=== PATIENT | female | born 1970 | race Caucasian/White ===

== ENCOUNTER → 2019-08-22 12:08 | Outpatient (BNVA) | payer MEDICARE, SELFPAY | PROVIDERS: PCP Family Medicine; Visit Provider Internal Medicine | DX: B19.20 Unspecified viral hepatitis C without hepatic coma (principal); R76.8 Other specified abnormal immunological findings in serum; K73.2 Chronic active hepatitis, not elsewhere classified | CPT/HCPCS: 80053; 82105; 85025; 87522 ==

== ENCOUNTER 2019-09-04 10:01 | Outpatient (CLI) | payer MEDICARE, SELFPAY ==
--- NOTE | 2019-09-04 09:30 | US_ITS ---
WS: [id number] Right upper quadrant ultrasound, 09/04/2019 Clinical Data: HEP C ANTIBODY TEST POSITIVE Comparison: None. Findings: The gallbladder is absent The common bile duct is 0.6 mm and there are no intrahepatic ductal abnormalities. Liver shows no cysts, masses or dilated intrahepatic ducts. The pancreas is not obscured by overlying bowel gas and no cyst, pseudocyst, or evidence of pancreati tis is noted. Right kidney measures 4.31 x 4.81 x 10.3 cm and no cyst, masses or hydronephrosis can be seen. The aorta and inferior vena cava show no vascular abnormalities. US/US liver [id number] Impression: 1. Negative right upper quadrant ultrasound. 2. Absent gallbladder.
== END 2019-09-04 10:02 | disposition home or self-care (01) ==
LOC: US 10:07
PROVIDERS: PCP Family Medicine; Visit Provider Internal Medicine
DX: R76.8 Other specified abnormal immunological findings in serum (principal)
CPT/HCPCS: 76705

== ENCOUNTER 2020-03-11 14:53 | Emergency (ER) | payer MEDICARE, SELFPAY ==
[2020-03-11 15:08] VITALS: BP 188/114; PULSE 91; RESP 18; TEMP 36.3; O2SAT 95; BMI 45.7
--- NOTE | 2020-03-11 15:14 | XR_ITS ---
WS: [id number] EXAM: RIGHT KNEE: 3 VIEWS DATE OF EXAMINATION: 03/11/2020, 1624 hours COMPARISON: None. HISTORY: Patient is 49 years old with knee pain. FINDINGS: There are changes consistent with advanced tricompartmental osteoarthritis within the right knee with out fracture, lytic or blastic process. No appreciable joint effusion. Extra articular soft tissues a re unremarkable. XR/XR knee RT 3V* [id number] IMPRESSION: Advanced arthritis right knee. No acute abnormality.
[2020-03-11 17:38] VITALS: PULSE 82
[2020-03-11 17:45] VITALS: BP 180/80; PULSE 85; RESP 16; O2SAT 95
--- NOTE | 2020-03-11 18:01 | W.ED.EXTPRO ---
HPI - Extremity Problem General: Chief complaint: Extremity Injury, Lower Stated complaint: RIGHT KNEE PAIN Time Seen by Provider: 03/11/20 17:55 Source: patient Mode of arrival: ambulatory Limitations: no limitations History of Present Illness: HPI Narrative: 49-year-old female states she is stepping over her dog yesterday and twisted her right leg. Patient states she felt a pop in her right knee and has had right knee pain since then. States pain is sharp in nature and rates it a 8 out of 10. She is able to walk on it but states that is quite painful. She denies any other injuries. Denies any history of issues with that knee. Associated symptoms: Deny chest pain, fever(s) or rash Review of Systems Const: Denies: fever(s), chills, body aches or change in appetite Eyes: Denies: blurry vision or eye discomfort ENMT: Denies: throat pain or dental pain Card: Denies: chest pain Resp: Denies: dyspnea GI: Denies: abdominal pain, nausea, vomiting or diarrhea : Denies: dysuria Musc: Reports: joint pain Skin/Breast: Denies: rash Neuro: Denies: headache(s) Psych: Denies: depression [place]/Lymph: Denies: easy bruising All/Imm: Denies: urticaria PFSH ED PFSH: Medical History Benign essential HTN Bilateral carpal tunnel syndrome History of gastric ulcer Umbilical hernia Ventral hernia, recurrent Family History Father Diabetes Mother Diabetes Hypertension Social History History of recent travel: No Physical Exam Const: COMMON NORMALS: no acute distress, patient oriented x3 and healthy appearing HENMT: COMMON NORMALS: normocephalic and atraumatic HEAD & SCALP: normocephalic and atraumatic Eye: COMMON NORMALS: Equal, round and reactive pupils present and EOMs intact bilaterally PUPIL: Yes Equal, round and reactive pupils present Neck/C-Spine: COMMON NORMALS: full ROM and supple Chest: COMMONS NORMALS: normal inspection of the chest and normal palpation of entire chest wall Resp: COMMON NORMALS: normal respiratory effort, No retractions, No use of accessory muscles and clear to auscultation bilaterally AUSCULTATION: clear to auscultation bilaterally Cardio: COMMON NORMALS: regular rate, regular rhythm and No murmurs present (Cardio) RATE: regular rate RHYTHM: regular rhythm GI: COMMON NORMALS: Normal to inspection, nondistended, normoactive bowel sounds present, Soft to palpation, non-tender and no masses PALPATION: Yes Soft to palpation Extremity: COMMON NORMALS: full ROM NARRATIVE EXTREMITY EXAM: Tenderness over right knee with slight swelling. No obvious deformity Neuro: COMMON NORMALS: patient oriented x3, moves all extremities and no focal motor deficits Psych: COMMON NORMALS: mental status grossly normal, Normal thought process present and cooperative THOUGHT PROCESS: Normal thought process present Skin: COMMON NORMALS: no rashes or lesions noted and no wounds GENERAL SKIN EXAM: no rashes or lesions noted Course Vital Signs: Vital signs: Vital Signs Temperature 97.3 F L 03/11/20 15:08 Pulse Rate 85 03/11/20 17:45 Respiratory Rate 16 03/11/20 17:45 Blood Pressure 180/80 03/11/20 17:45 Pulse Oximetry 95 03/11/20 17:45 MDM - Extremity (Nontraumatic) MDM Narrative: Medical decision making narrative: Patient presents with a knee sprain from a fall. Patient's x-ray shows no fracture. Will place in a knee immobilizer and have her follow-up orthopedics. She is return if worsening. Imaging Data^: X-ray right knee: Attestation: I personally reviewed and interpreted this imaging study as follows: My impression: No acute abnormality Discharge Plan Discharge Patient Disposition: Home Clinical Impression: Right knee sprain Qualifiers: Encounter type: initial encounter Involved ligament of knee: unspecified ligament Qualified Code(s): S83.91XA - Sprain of unspecified site of right knee, initial encounter Condition: Stable Prescriptions: New Naprosyn 500 mg tablet 500 mg PO BID PRN (Reason: pain) Qty: 20 RF: 0 [place] 5-325 mg tablet 1 tab PO Q6H PRN (Reason: pain) Qty: 10 RF: 0 No Action omeprazole 40 mg capsule,delayed release(DR/EC) 40 mg PO ONCE RF: 0 lisinopril 20 mg tablet 20 mg PO ONCE RF: 0 albuterol sulfate [ProAir HFA] 90 mcg/actuation HFA aerosol inhaler 2 puff INHALATION Q6H PRNRF: 0 Discharge Orders: Discharge Order (Routine); Ordered 03/11/20 Ordered By: Ольга Decker Referrals: Katherine De La Cruz DO [Primary Care Provider] - Filemon Issa MD [Physician] - 1-3 days Discharge Diet: Advance as tolerated Discharge Activity: Resume usual activity Patient Instructions: Knee Sprain (ED), Knee Immobilizer (ED) Coding Level of Care Code ED Parimutuel Cashier for Sis Seo
[2020-03-11] MEDS: HYDROcodone-acetaminophen 5-325 mg Tablet 1 TAB PO (18:37)
[2020-03-11 18:39] VITALS: BP 198/145; PULSE 98; O2SAT 97
--- NOTE | 2020-03-12 10:25 | DCPLANNER ---
sales activity manager had message to schedule a follow up appointment for patient with ortho. sales activity manager called the ortho clinic, spoke with Alyssa, gave clinic patients information. sales activity manager was told that patients information would be printed and reviewed. Clinic will call patient with appointment information.
--- NOTE | 2020-03-13 11:30 | DCPLANNER ---
Patient has a follow up appointment scheduled for Tuesday, March 17, 2020 at 10:[address] Issa. Clinic will call patient with appointment information.
--- NOTE | 2020-04-08 13:38 | DCPLANNER ---
Patient had a follow up appointment scheduled for 03.17.20 with ortho - patient did attend the appointment.
== END 2020-03-11 18:39 | disposition home or self-care (01) ==
PROVIDERS: Emergency Provider Emergency Medicine; PCP Family Medicine
DX: S83.91XA Sprain of unspecified site of right knee, initial encounter (principal); I10 Essential (primary) hypertension; X50.1XXA Overexertion from prolonged static or awkward postures, initial encounter
CPT/HCPCS: 12345; 29530; 73562; 99282; 99283; E0114

== ENCOUNTER 2020-09-24 09:33 | Emergency (ER) | payer MEDICARE, SELFPAY ==
[2020-09-24 09:42] VITALS: BP 174/106; PULSE 90; RESP 20; TEMP 36.7; O2SAT 97; BMI 56.7
--- NOTE | 2020-09-24 10:19 | XR_ITS ---
WS: [id number] Right knee, 3 views, 09/24/2020 Clinical Data: pain Comparison: Right knee, 03/11/2020. Findings: There is osteoarthritic spurring of the medial lateral femoral condyles and of the lateral tibial yuly teau. The patellas intact. There are no fractures or dislocations. The soft tissues are normal. XR/XR knee RT 3V* [id number] Impression: Osteoarthritic change of the medial and lateral joint compartments of the right knee.
[2020-09-24 10:24] LABS: Basophils # 0.1 10^3/uL (0.0-0.1); Eosinophils # 0.2 10^3/uL (0.0-0.8); Eosinophils % 3.4 %; Hematocrit 48.8 % (37.0-47.0); Lymphocytes # 1.9 10^3/uL (0.8-4.8); Lymphocytes % 27.6 %; Mean Corpuscular HGB Conc 32.8 g/dL (30.0-36.0); Mean Corpuscular Hemoglobin 30.7 pg (28.0-34.0); Mean Corpuscular Volume 93.7 fL (81-99); Mean Platelet Volume 12.3 fL (7.4-10.4); Monocytes # 0.4 10^3/uL (0.2-0.9); Monocytes % 6.1 %; Neutrophils # 4.31 10^3/uL (1.8-7.7); Neutrophils % 61.5 %; Nucleated Red Blood Cells % 0 %; Platelet Count 159 10^3/cmm (130-400); Red Blood Count 5.21 10^6/uL (4.1-5.3)
--- NOTE | 2020-09-24 10:25 | ED_ITS ---
HPI - Female Genitourinary General: Chief complaint: Urogenital-Female Stated complaint: rt knee pain/kidney pain Time Seen by Provider: 09/24/20 09:43 History of Present Illness: HPI Narrative: the patient is a obese female with PMH arthritis comes to [facility] complaining of right flank pain for past day and severe low back pain and right knee pain. Denies urinary symptoms or hematuria. Quality of pain: sharp Consistency: constant Exacerbating factors: movement Associated symptoms: Reports no associated symptoms; Deny abdominal pain or headache(s) Review of Systems General: Reports: 10 or more systems reviewed and unremarkable except in HPI and below Const: Denies: fatigue Eyes: Denies: change in vision, blurry vision or eye redness ENMT: Denies: throat pain, swelling of lips/tongue, ear or mastoid pain or nasal congestion Card: Denies: chest pain, palpitations, irregular heart rhythm, edema, dyspnea on exertion or orthopnea Resp: Denies: dyspnea, productive cough or non-productive cough GI: Denies: abdominal pain, diarrhea or GI cramping : Denies: flank pain, difficulty voiding, urinary frequency or urinary urgency Musc: Reports: back pain and joint pain; Denies: neck pain, extremity pain, joint redness, limited range of motion or muscle weakness Skin/Breast: Denies: rash, pruritus, erythema, skin pain or skin tenderness Neuro: Denies: headache(s), numbness in extremities, weakness in extremities, sensory changes, difficulty walking, dizziness, confusion or Slurred speech present Psych: Denies: anxiety or depression Endo: Denies: polyuria All/Imm: Denies: urticaria, throat swelling or tongue swelling PFSH ED PFSH: Medical History (Updated 09/24/20 @ 11:58 by Que Thomas MD) Benign essential HTN Bilateral carpal tunnel syndrome History of gastric ulcer Umbilical hernia Ventral hernia, recurrent Surgical History (Updated 03/26/20 @ 14:52 by Katherine De La Cruz DO) H/O hernia repair H/O neck surgery H/O: hysterectomy History of appendectomy History of back surgery History of cholecystectomy Family History Father Diabetes Mother Diabetes Hypertension Social History Smoking and tobacco status: current every day smoker cigarettes Packs smoked per day: 0.75 Alcohol intake: current Alcohol intake frequency: holidays/special occasions only History of recent travel: No Physical Exam Const: COMMON NORMALS: no acute distress, average body habitus, patient oriented x3, no limitations, healthy appearing, alert and well nourished GENERAL APPEARANCE: cooperative, comfortable, well kempt and well developed ORIENTATION/CONSCIOUSNESS: Yes awake, Yes oriented to person, Yes oriented to place and Yes oriented to time HENMT: COMMON NORMALS: normocephalic, external ears normal and Normal external nose present HEAD & SCALP: normal to inspection and normocephalic NOSE: Normal external nose present EXTERNAL EAR: Yes external ears normal MOUTH: Normal oral and palatal mucosa present THROAT: posterior oropharynx normal Eye: COMMON NORMALS: Equal, round and reactive pupils present and EOMs intact bilaterally GENERAL EYE: appearance normal, both eyes and all related structures PUPIL: Yes Equal, round and reactive pupils present Neck/C-Spine: COMMON NORMALS: full ROM, no lymphadenopathy, no meningeal signs and no JVD GENERAL: Yes normal visual inspection Lymph: LYMPHATIC: no lymphadenopathy noted Chest: COMMONS NORMALS: normal inspection of the chest and normal palpation of entire chest wall Resp: COMMON NORMALS: normal respiratory effort, No retractions, No use of accessory muscles, clear to auscultation bilaterally and percussion normal EFFORT & INSPECTION: Yes able to speak in complete sentences AUSCULTATION: clear to auscultation bilaterally PERCUSSION: percussion normal Cardio: COMMON NORMALS: no JVD, regular rate, regular rhythm, S1 normal heart sound present, S2 normal heart sound present and Peripheral pulses 2+ throughout RATE: regular rate RHYTHM: regular rhythm HEART SOUNDS: S1 normal heart sound present and S2 normal heart sound present PERIPHERAL PULSES: Peripheral pulses 2+ throughout GI: COMMON NORMALS: Normal to inspection, nondistended, normoactive bowel sounds present, Soft to palpation, non-tender and no masses INSPECTION: Yes normal to inspection PALPATION: Yes Soft to palpation Back/Pelvis: COMMON NORMALS: thoracic and lumbar spine normal to inspection, no thoracic nor lumbar tenderness and thoraco-lumbar ROM normal OTHER: Tenderness to right paralumbar musculature vs CVA tenderness. Morbidly obese. Extremity: COMMON NORMALS: normal to inspection, full ROM, capillary refill normal, no joint enlargement and no pedal edema NARRATIVE EXTREMITY EXAM: Right knee tenderness. Ligaments intact. NVI to toes bilaterally. GENERAL: Yes normal exam except as noted Neuro: COMMON NORMALS: patient oriented x3, CN's II-XII intact bilaterally, moves all extremities, no focal motor deficits, no sensory deficits noted and gait normal SENSORIUM/ORIENTATION: Yes alert, Yes oriented to person, Yes oriented to place and Yes oriented to time MENINGEAL SIGNS: Yes no meningeal signs Psych: COMMON NORMALS: mental status grossly normal, Normal thought process present, cooperative, normal affect and speech normal APPEARANCE: Yes well kempt ATTITUDE: Yes calm SPEECH: Yes normal speech THOUGHT PROCESS: Normal thought process present Skin: COMMON NORMALS: no rashes or lesions noted GENERAL SKIN EXAM: no rashes or lesions noted Course Vital Signs: Vital signs: Vital Signs Temperature 98.1 F 09/24/20 09:42 Pulse Rate 90 09/24/20 09:42 Respiratory Rate 20 H 09/24/20 09:42 Blood Pressure 174/106 09/24/20 09:42 Pulse Oximetry 97 09/24/20 09:42 MDM - Female MDM Narrative: Medical decision making narrative: pt has lumbar back pain. labs normal. OK to d/c home with flexeril. ER with worsening symptoms. PCP in a few days. Discussed weight loss with her. Lab Data: Labs: Lab Results 09/24/20 09/24/20 09/24/20 Range/Units 10:15 10:15 10:25 WBC 7.0 (4.0-10.0) 10^3/ uL RBC 5.21 (4.1-5.3) 10^6/u L Hgb 16.0 H (11.5-15.3) g/dL Hct 48.8 H (37.0-47.0) % MCV 93.7 (81-99) fL MCH 30.7 (28.0-34.0) pg MCHC 32.8 (30.0-36.0) g/dL RDW 13.0 (12.1-15.1) % Plt Count 159 (130-400) 10^3/c mm MPV 12.3 H (7.4-10.4) fL Neut % (Auto) 61.5 % Lymph % (Auto) 27.6 % [place] % (Auto) 6.1 % Eos % (Auto) 3.4 % Baso % (Auto) 1.0 % Neut # (Auto) 4.31 (1.8-7.7) 10^3/u L Lymph # (Auto) 1.9 (0.8-4.8) 10^3/u L [place] # (Auto) 0.4 (0.2-0.9) 10^3/u L Eos # (Auto) 0.2 (0.0-0.8) 10^3/u L Baso # (Auto) 0.1 (0.0-0.1) 10^3/u L Nucleated RBC % (a uto) 0 % Nucleated RBCs # 0.0 /100WBC Sodium 136 (136-145) mmol/L Potassium 4.2 (3.5-5.1) mmol/L Chloride 101 (98-107) mmol/L Carbon Dioxide 26 (22-29) mmol/L Anion Gap 13.2 (5-19) BUN 11 (6-20) mg/dL Creatinine 0.7 (0.5-0.9) mg/dL GFR Calculation 88.9 L (90-130) mL/min Glucose 115 (65-115) mg/dL Calculated Osmolal ity 282 L (285-295) mOsm/k g Calcium 9.5 (8.5-10.5) mg/dL Total Bilirubin 0.4 (0.15-1.2) mg/dL AST 52 H (0-32) U/L ALT 56 H (0-33) U/L Alkaline Phosphata se 72 (35-105) IU/L Total Protein 7.7 (6.6-8.7) g/dL Albumin 4.0 (3.5-5.2) g/dL Globulin 3.7 (1.3-4.6) g/dL Lipase 31 (13-60) U/L Urine Color Yellow (Yellow) Urine Appearance Clear (CLEAR) Urine pH 5 (5-7) Ur Specific Gravit y 1.020 (1.005-1.030) Urine Protein Neg (Negative) Urine Glucose (UA) Norm (Normal) Urine Ketones Negative (Negative) Urine Blood Neg (Negative) Urine Nitrate Negative (Negative) Urine Bilirubin Neg (Negative) Urine Urobilinogen Norm (Negative) mg/dL Ur Leukocyte Deb ase Negative (Negative) Discharge Plan Discharge Patient Disposition: Home Clinical Impression: Lumbar strain, Chronic knee pain Condition: Stable Prescriptions: New cyclobenzaprine 5 mg tablet 5 mg PO TID PRN (Reason: muscle spasm) Qty: 12 RF: 0 No Action albuterol sulfate [ProAir HFA] 90 mcg/actuation HFA aerosol inhaler 2 puff INHALATION Q6H PRN (Reason: Shortness Of Breath) RF: 0 Tylenol 325 mg Tablet 325 mg PO PRN RF: 0 Prilosec OTC 20 mg Tablet,Delayed Release (Dr/Ec) 20 mg PO DAILY RF: 0 acetaminophen [Tylenol Extra Strength] 500 mg Tablet 500 mg PO PRN RF: 0 diphenhydramine HCl [Benadryl] 25 mg Capsule 25 mg PO PRN RF: 0 Discharge Orders: Discharge ED (Routine); Ordered 09/24/20 Ordered By: Que Thomas Referrals: Katherine De La Cruz DO [Primary Care Provider] - Discharge Diet: Advance as tolerated Discharge Activity: Resume usual activity Patient Instructions: Low Back Strain (ED), Opioid Safety Activity Restrictions/Additional Instructions: Please take flexeril for your back pain to help. take at night to help you sleep. Do not mix this drug with drugs, alcohol, nor operate machinery while using as it makes you tired. Return to ED with worsening symptoms. Follow up with your primary care physician in a few days to monitor improvement of your symptoms. Coding Level of Care Code ED Acid Crane Operator for Sis Fwd Exam Comprehensive
[2020-09-24] MEDS: sodium chloride 0.9% 1,000 ML 999 ML IV (10:27)
[2020-09-24] MEDS: orphenadrine 30 mg/mL Inj 2 mL 60 MG IM (10:28)
[2020-09-24] MEDS: ketorolac 30 mg/mL INJ IM (10:28)
[2020-09-24 10:35] LABS: Add Urine Microscopic? NO
[2020-09-24 10:43] LABS: Bilirubin Urine Neg (Negative); Blood Urine Neg (Negative); Glucose Urine UA Norm (Normal); Ketones Urine Negative (Negative); Leukocyte Esterase Urine Negative (Negative); Nitrate Urine Negative (Negative); Protein Urine Neg (Negative); Urine Appearance Clear (CLEAR); Urine Color Yellow (Yellow); Urobilinogen Urine Norm (Negative); pH Urine 5 (5-7)
[2020-09-24 10:48] LABS: Alanine Aminotransferase 56 U/L (0-33); Alkaline Phosphatase 72 IU/L (35-105); Anion Gap 13.2 (5-19); Aspartate Amino Transferase 52 U/L (0-32); Blood Urea Nitrogen 11 mg/dL (6-20); Calcium 9.5 mg/dL (8.5-10.5); Carbon Dioxide 26 mmol/L (22-29); Chloride 101 mmol/L (98-107); Creatinine Clr Calc Pharmacy 132.4551; Globulin 3.7 g/dL (1.3-4.6); Glomerular Filtration Rate 88.9 mL/min (90-130); Glucose 115 mg/dL (65-115); Lipase 31 U/L (13-60); Osmolality Calculated 282 mOsm/kg (285-295); Potassium 4.2 mmol/L (3.5-5.1); Sodium 136 mmol/L (136-145); Total Bilirubin 0.4 mg/dL (0.15-1.2); Total Protein 7.7 g/dL (6.6-8.7)
[2020-09-24 12:27] VITALS: PULSE 81; RESP 20; O2SAT 95
[2020-09-24 14:35] LABS: HCG Qualitative Urine. Negative (Negative)
== END 2020-09-24 12:24 | disposition home or self-care (01) ==
PROVIDERS: Emergency Provider Family Medicine; PCP Family Medicine
DX: G89.29 Other chronic pain (principal); M25.561 Pain in right knee; S39.012A Strain of muscle, fascia and tendon of lower back, initial encounter; I10 Essential (primary) hypertension; F17.210 Nicotine dependence, cigarettes, uncomplicated; X58.XXXA Exposure to other specified factors, initial encounter
CPT/HCPCS: 73562; 80053; 81003; 81025; 83690; 85025; 96360; 96372; 99283; J1885; J2360; J7030

== ENCOUNTER 2020-12-13 17:57 | Emergency (ER) | payer MEDICARE, SELFPAY ==
[2020-12-13 18:54] VITALS: BP 190/113; PULSE 92; RESP 19; TEMP 36.6; O2SAT 95; BMI 50.3
--- NOTE | 2020-12-13 20:10 | W.ED.EXTPRO ---
HPI - Extremity Problem General: Chief complaint: Extremity Problem,Nontraumatic Stated complaint: Swelling in right foot Time Seen by Provider: 12/13/20 20:01 History of Present Illness: HPI Narrative: Patient is a 49-year-old female comes to the ED with swelling and pain in left leg. Symptoms started approximately 2 days ago. Patient says 2 days ago she got out of bed and when she started walking her right knee hyperextended. She did not think it was that bad of an injury but started developing pain in the back of her right knee. She describes the pain as a sharp stabbing pain in the back of her knee. She rates the pain a 10 out of 10. She also reports having foot swelling last night. She says the swelling has improved today. She reports that is painful to put any weight on her right knee. Denies any past medical history of blood clots or DVTs. She denies any chest pain, shortness of breath or hemoptysis. Associated symptoms: Deny chest pain, fever(s) or rash Review of Systems Const: Denies: fever(s), chills or fatigue Eyes: Denies: change in vision or eye discomfort ENMT: Denies: throat pain, odynophagia, nasal discharge or nasal congestion Card: Denies: chest pain, palpitations, edema, swelling of feet/ankles, dyspnea on exertion or orthopnea Resp: Denies: dyspnea, productive cough or non-productive cough GI: Denies: abdominal pain, nausea, vomiting, diarrhea, constipation or hematochezia : Denies: flank pain, dysuria or hematuria Musc: Reports: extremity pain (Behind right knee.) and extremity swelling (Right foot); Denies: neck pain or back pain Skin/Breast: Denies: rash or new lesions Neuro: Denies: headache(s), numbness in extremities or weakness in extremities PFSH ED PFSH: Medical History Benign essential HTN Bilateral carpal tunnel syndrome History of gastric ulcer Umbilical hernia Ventral hernia, recurrent Surgical History H/O hernia repair H/O neck surgery H/O: hysterectomy History of appendectomy History of back surgery History of cholecystectomy Family History Father Diabetes Mother Diabetes Hypertension Social History Smoking and tobacco status: current every day smoker cigarettes Packs smoked per day: 0.75 Alcohol intake: current Alcohol intake frequency: holidays/special occasions only History of recent travel: No Physical Exam Const: COMMON NORMALS: patient oriented x3 and alert GENERAL APPEARANCE: cooperative; not comfortable (Uncomfortable due to pain) NUTRITIONAL APPEARANCE: obese HENMT: COMMON NORMALS: normocephalic HEAD & SCALP: normocephalic MOUTH: Normal oral and palatal mucosa present THROAT: posterior oropharynx normal and uvula midline Neck/C-Spine: COMMON NORMALS: supple GENERAL: Yes normal visual inspection Resp: COMMON NORMALS: normal respiratory effort, No retractions, No use of accessory muscles and clear to auscultation bilaterally AUSCULTATION: clear to auscultation bilaterally Cardio: COMMON NORMALS: regular rate, regular rhythm, S1 normal heart sound present, S2 normal heart sound present, No gallops present (Cardio), No clicks present (Cardio), No murmurs present (Cardio) and Peripheral pulses 2+ throughout RATE: regular rate RHYTHM: regular rhythm HEART SOUNDS: S1 normal heart sound present and S2 normal heart sound present PERIPHERAL PULSES: Peripheral pulses 2+ throughout GI: COMMON NORMALS: Normal to inspection, nondistended, normoactive bowel sounds present, Soft to palpation, non-tender and no masses PALPATION: Yes Soft to palpation : COMMON NORMALS: Yes no CVA tenderness BLADDER/KIDNEY EXAM: Yes no CVA tenderness Back/Pelvis: COMMON NORMALS: no CVA tenderness Extremity: GENERAL: Yes normal exam except as noted, Yes calf tenderness (Right calf tenderness) and Yes edema ( trace edema in right foot.) RIGHT LOWER EXTREMITY: Yes knee joint Right knee: Yes inspection (No visible deformity or edema noted. No ecchymosis seen.), Yes palpation (Tenderness in the posterior aspect of knee), Yes ROM (Limited due to pain) and Yes neurovascular exam (Intact) Neuro: COMMON NORMALS: patient oriented x3 and moves all extremities SENSORIUM/ORIENTATION: Yes alert Skin: GENERAL SKIN EXAM: dry skin Course Reevaluation(s): Reevaluation #1: After patient received IM morphine her pain greatly improved and she was resting comfortably. Vital Signs: Vital signs: Vital Signs Temperature 97.8 F 12/13/20 18:54 Pulse Rate 88 12/13/20 22:16 Respiratory Rate 18 12/13/20 22:16 Blood Pressure 156/98 12/13/20 22:16 Pulse Oximetry 95 12/13/20 22:16 MDM - Extremity (Nontraumatic) MDM Narrative: Medical decision making narrative: Patient is a 49-year-old female comes to the ED with right leg pain and swelling. She reports potentially hyperextending her right knee a couple days ago. She was concerned because yesterday she had significant right foot swelling and was concerned of a blood clot. Exam was unremarkable. Right calf tenderness. Neurovascular intact. X-ray of right knee showed no acute fractures but noted some degenerative osteoarthritis. Ultrasound venous duplex of right lower extremity negative for DVT or blood clots. Patient diagnosed with pain of right knee after injury and she was discharged home with some crutches. She was told to follow-up with PCP in 7 to 10 days for reevaluation. Return to ED precautions given. Patient understood and agree with plan. Imaging Data^: Xray Ortho: Attestation: I personally reviewed and interpreted this imaging study as follows: Radiologist's impression: [address] [address] XRay Report Signed Patient: Anna Costello Unit #: [id number] : 1970 Age/Sex: 49 / F ADM Date: 12/13/20 Loc: ER Room/Bed: Attending Dr: Ordering Provider/Ordering MD: Cecil Gardiner Date of Service: 12/13/20 Procedure(s): XR knee RT 3V* [id number] Accession Number(s): [id number] Report Number: [id number] PROCEDURE INFORMATION: Exam: XR Right Knee Exam date and time: 12/13/2020 8:12 PM Age: 49 years old Clinical indication: Pain; Knee; Right; Additional info: Knee pain TECHNIQUE: Imaging protocol: XR Right knee. Views: 3 views. COMPARISON: No relevant prior studies available. FINDINGS: Bones/joints: Severe tricompartmental joint space narrowing and productive degenerative changes consistent with severe tricompartmental osteoarthritis. Soft tissues: Normal. XR/XR knee RT 3V* [id number] IMPRESSION: Severe tricompartmental joint space narrowing and productive degenerative changes consistent with severe tricompartmental osteoarthritis. Dictated By: Aman Mera MD Signed By: Aman Mera MD Signed Date/Time: 12/13/202140 DD/ 37 Vascular: Attestation: I personally reviewed and interpreted this imaging study as follows: Radiologist's impression: Ultrasound venous duplex of right lower extremity?prelim report?no DVTs or blood clots seen. Discharge Plan Discharge Patient Disposition: Home Clinical Impression: Pain of right knee after injury Condition: Stable Prescriptions: No Action albuterol sulfate [ProAir HFA] 90 mcg/actuation HFA aerosol inhaler 2 puff INHALATION Q6H PRN (Reason: Shortness Of Breath) RF: 0 amoxicillin 500 mg capsule 500 mg PO TID 10 Days Qty: 30 RF: 0 triamcinolone acetonide 55 mcg aerosol,spray 2 spray intranasal DAILY 7 Days Qty: 16.9 RF: 0 Tylenol 325 mg Tablet 325 mg PO PRN RF: 0 Prilosec OTC 20 mg Tablet,Delayed Release (Dr/Ec) 20 mg PO DAILY RF: 0 acetaminophen [Tylenol Extra Strength] 500 mg Tablet 500 mg PO PRN RF: 0 diphenhydramine HCl [Benadryl] 25 mg Capsule 25 mg PO PRN RF: 0 Discharge Orders: Discharge ED (Routine); Ordered 12/13/20 Ordered By: Cecil Gardiner Referrals: Katherine De La Cruz DO [Primary Care Provider] - Discharge Diet: Regular Discharge Activity: Use walker/crutches as instructed Patient Instructions: Knee Pain (ED) Activity Restrictions/Additional Instructions: Follow-up with medical provider as directed in 7 to 10 days reevaluation. Use crutches for the next 2 to 3 days to stay off right knee and allow for healing. Rest, ice and elevate right knee and leg. Take [id number] ibuprofen or Tylenol for pain. Return to the ER or your medical provider if condition worsens. Please read and understand discharge instructions. Thank you for choosing [facility] for your healthcare needs today. Please realize this is an emergency room and that we are providing you with a medical screening exam and this may not be complete and all inclusive of all the testing and or work up that you may need to determine your ailment or severity of your illness. It is very important that you follow up as instructed or that you return to the Emergency Department should you have concerns or if your condition changes or worsens in any way. 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
--- NOTE | 2020-12-13 20:11 | USR_ITS ---
PROCEDURE INFORMATION: Exam: US Duplex Right Lower Extremity Veins, Limited Exam date and time: 12/13/2020 8:12 PM Age: 49 years old Clinical indication: Pain; Leg, lower; Right; Additional info: Calf tenderness, and swelling TECHNIQUE: Imaging protocol: Real-time Duplex ultrasound of the Right Lower Extremity with 2-D fajardo scale, color Doppler flow and spectral waveform analysis with image documentation. Limited exam was focused on the right lower extremity veins. COMPARISON: No relevant prior studies available. FINDINGS: Right deep veins: Unremarkable. The common femoral, femoral, proximal profunda femoral and popliteal veins are patent without thrombus. Normal Doppler waveforms. Normal compressibility and/or augmentation response. Right superficial veins: Unremarkable. Saphenofemoral junction is patent without thrombus. Soft tissues: Unremarkable. US/[place] [id number] IMPRESSION: Negative for deep venous thrombosis.
[2020-12-13 20:20] VITALS: RESP 22
[2020-12-13] MEDS: ondansetron 4 MG Tablet PO (20:20)
[2020-12-13] MEDS: morphine 4 mg/mL SDV 1 mL IM (20:20)
[2020-12-13 22:16] VITALS: BP 156/98; PULSE 88; RESP 18; O2SAT 95
== END 2020-12-13 22:18 | disposition home or self-care (01) ==
PROVIDERS: Emergency Provider Physician Assistant; PCP Family Medicine
DX: M25.561 Pain in right knee (principal); I10 Essential (primary) hypertension; F17.210 Nicotine dependence, cigarettes, uncomplicated
CPT/HCPCS: 73562; 93971; 96372; 99283; J2270; Q0162